=== PATIENT | male | born 1975 | race African-American/Black ===

== ENCOUNTER 2022-08-07 02:24 | Emergency (ER) | payer OTHER, SELFPAY ==
[2022-08-07 02:27] VITALS: BP 143/91; PULSE 73; RESP 15; TEMP 36.3; O2SAT 98
--- NOTE | 2022-08-07 04:58 | ED.GENADULT ---
HPI - General Adult General Chief complaint: Skin/Abscess/Foreign Body Stated complaint: both forearms are itching Time Seen by Provider: 08/07/22 04:51 History of Present Illness HPI narrative: Patient is a 47-year-old gentleman who presents the emergency department with chief complaint of rash to the forearms. Patient reports that for several days he had itching in his forearms. It improved by anything patient states that he had done some work in the yard and was carrying some weeds and would also he recently got a new dog that he has been exposed to as well Related Data Allergies Allergy/AdvReac Type Severity Reaction Status Date / Time PCN and tomatos Allergy Unknown Uncoded 11/10/15 07:44 Review of Systems Review of Systems: A 10 system review of systems was completed on the patient and is negative except for what is stated in the HPI. Nursing and ancillary documentation was reviewed. Exam Narrative: GENERAL: Well-appearing, well-nourished, and in no acute distress. HEAD: Normocephalic, atraumatic. EYES: PERRLA and EOMI. ENT: Nares clear, no rhinorrhea or epistaxis. Mucous membranes moist. NECK: Supple. CHEST: Clear to auscultation. No respiratory distress. HEART: Regular rate and rhythm. No murmur heard. Normal peripheral pulses. ABDOMEN: Soft, nontender, nondistended, normal active bowel sounds. EXTREMITIES: Normal range of motion. No edema. SKIN: Warm, dry, contact dermatitis type rash present to the forearms. NEURO: No focal deficits. Alert and oriented x3. PSYCH: Normal mood and affect. Course Vital Signs Vital signs: Vital Signs Temperature 36.3 C L 08/07/22 02:27 Pulse Rate 73 08/07/22 02:27 Respiratory Rate 15 08/07/22 02:27 Blood Pressure 143/91 H 08/07/22 02:27 Pulse Oximetry 98 08/07/22 02:27 Oxygen Delivery Room Air 08/07/22 02:27 Temperature 36.3 C L 08/07/22 02:27 Pulse Rate 73 08/07/22 02:27 Respiratory Rate 15 08/07/22 02:27 Blood Pressure 143/91 H 08/07/22 02:27 Pulse Oximetry 98 08/07/22 02:27 Oxygen Delivery Room Air 08/07/22 02:27 Medical Decision Making MDM Narrative Medical decision making narrative: Differential diagnosis includes allergic reaction, contact dermatitis, unspecified dermatitis Patient will be started on steroid in the emergency department will be discharged with a course of a prednisone pulse and a prescription for Atarax for the itching Vital Signs Vital Signs: Vital Signs Temperature 36.3 C L 08/07/22 02:27 Pulse Rate 73 08/07/22 02:27 Respiratory Rate 15 08/07/22 02:27 Blood Pressure 143/91 H 08/07/22 02:27 Pulse Oximetry 98 08/07/22 02:27 Oxygen Delivery Room Air 08/07/22 02:27 Temperature 36.3 C L 08/07/22 02:27 Pulse Rate 73 08/07/22 02:27 Respiratory Rate 15 08/07/22 02:27 Blood Pressure 143/91 H 08/07/22 02:27 Pulse Oximetry 98 08/07/22 02:27 Oxygen Delivery Room Air 08/07/22 02:27 Discharge Plan Discharge Clinical Impression: Dermatitis Patient Disposition: Home, Self-Care Condition: Stable Instructions: Antibiotic Form, Dermatitis (ED) Prescriptions: New hydroxyzine pamoate [Vistaril] 25 mg capsule 25 mg PO QID PRN (Reason: itching) Qty: 30 0RF prednisone 20 mg tablet 40 mg PO DAILY 5 Days Qty: 10 0RF Follow-up/Referrals: PHYSICIAN NOT ON STAFF,NONSTAFF [Primary Care Provider] - Time of Disposition: 05:04
[2022-08-07] MEDS: FAMOTIDINE 20 MG TABLET PO (05:17)
[2022-08-07] MEDS: hydrOXYzine pamoate 25 MG CAPSULE PO (05:18)
[2022-08-07 05:27] VITALS: BP 150/100; PULSE 60; RESP 18; O2SAT 99
== END 2022-08-07 05:28 | disposition home or self-care (01) ==
PROVIDERS: Emergency Provider Emergency Medicine
DX: L30.9 Dermatitis, unspecified (principal)
CPT/HCPCS: 96372; 99283; A9270; J1100